=== PATIENT | female | born 2000 | race Caucasian/White ===

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

== ENCOUNTER 2022-04-25 15:21 | Outpatient (REF) | payer MEDICAID, SELFPAY ==
[2022-04-25 20:30] LABS: Abs Immature Grans 0.01 10^3/uL (0.0-0.06); Absolute Basophil Count 0.06 10^3/uL (0.0-0.2); Absolute Eosinophil Count 0.06 10^3/uL (0.0-0.7); Absolute Lymphocyte Count 2.34 10^3/uL (1.2-3.4); Absolute Monocyte Count 0.49 10^3/uL (0.1-0.8); Absolute Neutrophil Count 4.37 10^3/uL (1.2-6.7); Basophils % 0.8; Eosinophils % 0.8; HCT 37.6 % (36.0-46.0); HGB 12.6 g/dL (11.2-15.7); Immature Grans % 0.1; Lymphocytes % 31.9; MCH 30.9 pg (27.0-33.0); MCHC 33.5 % (32.0-36.0); MCV 92 fL (80-95); MPV 10.3 fL (8.0-11.0); Monocytes % 6.7; Neutrophils % 59.7; Platelet Count 286 10^3/uL (130-400); RBC 4.08 10^6/uL (3.93-5.22); RDW 11.9 % (11.7-14.6); RDW-SD 40.7 fL; WBC 7.33 10^3/uL (4.4-10.8)
== END 2022-04-25 15:22 | disposition home or self-care (01) ==
LOC: LBN 15:21
PROVIDERS: PCP Nurse Practitioner; Visit Provider Physician Assistant
DX: R59.1 Generalized enlarged lymph nodes (principal)
CPT/HCPCS: 85025

== ENCOUNTER 2022-07-13 15:24 | Emergency (ER) | payer MEDICAID, SELFPAY ==
[2022-07-13 15:30] VITALS: BP 115/64; PULSE 89; RESP 20; TEMP 36.8; O2SAT 96
--- NOTE | 2022-07-13 15:45 | DI.RAD_ITS ---
Exam(s) XR ELBOW LT COMPLETE EXAM: XR ELBOW LT COMPLETE CLINICAL HISTORY: dog bite lateral elbow TECHNIQUE: COMPARISON: No exams were available for comparison FINDINGS: Three views were obtained. There appears to be a small amount of gas in the soft tissues adjacent to the lateral epicondyle of the humerus. There is no underlying fracture. No evidence of joint effus ion . IMPRESSION: RADIATION DOSE DELIVERED: Total DLP
--- NOTE | 2022-07-13 15:52 | W.ED.GENAD ---
Discharge Plan Disposition Patient Disposition: Home Condition: Good Discharge Details Clinical Impression: Dog bite, Elbow laceration Primary Care Provider: Migdalia Santizo ED Provider: Kate Carrizales Home Meds and New Rx's Prescriptions: New amoxicillin-pot clavulanate 875-125 mg tablet 1 tab PO BID 7 Days Qty: 14 0RF Continued loratadine [Allergy Relief (loratadine)] 10 mg tablet 10 mg PO DAILY Qty: 90 3RF fluticasone propionate [Flonase Allergy Relief] 50 mcg/actuation spray,suspension 1 spray intranasal DAILY Qty: 16 3RF Rx Instructions: administer into each nostril bupropion HCl [Wellbutrin SR] 100 mg tablet sustained-release 12 hr 100 mg PO DAILY Qty: 90 5RF hydroxyzine HCl 25 mg tablet 25 mg PO QID PRN (Reason: itching) Qty: 60 1RF Nexplanon 68 mg implant 1 implant SBD ONCE Qty: 1 0RF ondansetron HCl 4 mg tablet 4 mg PO Q8H PRN (Reason: nausea and vomiting) Qty: 5 0RF Discharge Instructions Instructions: Animal Bite (ED), Laceration (ED) Additional Instructions: Please keep your wound clean, dry, covered. May wash with running water but do not soak or submerge. Please monitor wound for signs of infection including redness, warmth, drainage, increased pain, fever/chills. If you develop these or other new/worsening symptoms to seek care urgently once again. X-rays are reassuring here today, no evidence of fracture or retained tooth fragment. Please call your primary care to discuss refills of your anxiety medication before these run out. Please allow the Steri-Strips to come off on its own or do not pick or pull at this. Applying a large Band-Aid over this area will help this stay in place for a longer time. Referrals: Migdalia Santizo NP [Primary Care Provider] - Discharge Data Discharge Date/Time-TO BE ENTERED AT DEPARTURE: 07/13/22 16:34 Medical Decision Making Patient is a pleasant 22-year-old emjcu-bgrn-bntjadka female presented with chief complaint of left elbow laceration after being bit by dog. She reports this is is a large pimple in this her parents dog. States that it was fighting with another large people and she was attempting to break up the fight. Dog has bit her on other occasions as well, has healing wounds to the left hand. She denies any numbness or tingling. States that the pain is radiating proximally up the lateral aspect of the arm some. States that she cleansed the wound and applied Steri-Strips and bacitracin. Reports that she is up-to-date on tetanus. On exam, patient appears nontoxic. She has a 1.5 cm linear laceration over the lateral aspect of the left elbow. She does have some swelling, ecchymosis and tenderness extending 5 cm proximal to the laceration but no break in the skin elsewhere. She has full range of motion, neurovascularly intact distal to the wound as well as proximally. Consider possible bony involvement or fracture to this, will obtain an x-ray. We will begin on Augmentin. We will give Tylenol and ibuprofen to help with discomfort. FINDINGS: Bones/joints: No significant anterior or posterior fat pad elevation is appreciated. There is some subtle sclerosis which may represent averaging versus previous injury at the radial neck level. No fracture or dislocation is appreciated. Soft tissues: There is slight soft tissue swelling with subcutaneous emphysema anterior laterally predominant corresponding to the clinical history provided of dog bite. This indicates skin laceration. No radiopaque foreign body is appreciated. IMPRESSION: 1. Osseous alignment is maintained.No fracture or dislocation is appreciated. 2. There is some subcutaneous emphysema demonstrated corresponding to the clinical history provided. Reviewed the imaging and area of air is consistent with area of dog bite, no evidence to suggest infection at this time particularly given the recent the wound. More likely just air trapping in the wound. Discussed these findings with the patient. We will remove her Steri-Strips, cleanse the wound and reevaluate deep structures. Then plan to close with adhesive strips to allow for continued drainage of the wound. Wound was copiously irrigated. Explored to base in a bloodless field. No foreign body or debris noted. Wound edges gently reapproximated with Steri-Strips but gaps remaining to allow for from the wound. Drainage potential patient given first dose of Augmentin here. Received analgesics. We discussed wound care and care of the Steri-Strips in depth. Did apply large Band-Aid over this to help prevent this from catching on close or patient picking or pulling at it. Advise follow-up with primary care in 1 to 2 weeks for reevaluation of the wound. Tetanus status was not up-to-date in our system but she states that she received it a few weeks ago when at hospital in [place] for previous dog bite. All of her questions and concerns were addressed and she is in agreement with this plan. Sign Out No HPI General Date/Time Provider Initiated Documentation: 07/13/22 15:26. Limitations to Documentation: no limitations. Information obtained by: patient and RN notes reviewed. History of Present Illness 22 year old F presents to the emergency department with the chief complaint of dog bite left elbow, described as severe, with intensity rated at 10. Quality is described as stabbing, and is localized to the left and upper extremity. Patient proximal. Patient started experiencing this minute(s) and it has been constant. Immobilization improves symptom(s), Movement worsens symptoms . Patient notes no other symptoms.. Patient did receive the following treatments prior to arrival, none Related Data Home Medications Medication Instructions Recorded Confirmed etonogestrel 68 mg subdermal 1 implant subdermal ONCE #1 ea 07/09/21 07/13/22 implant (Nexplanon) ondansetron HCl 4 mg tablet 4 mg PO Q8H PRN nausea and 04/25/22 07/13/22 vomiting #5 tabs bupropion HCl 100 mg tablet,12 hr 100 mg PO DAILY #90 tabs 05/16/22 07/13/22 sustained-release (Wellbutrin SR) fluticasone propionate 50 1 spray intranasal DAILY #16 grams 05/16/22 07/13/22 mcg/actuation nasal spray,suspension (Flonase Allergy Relief) hydroxyzine HCl 25 mg tablet 25 mg PO QID PRN itching #60 tabs 05/16/22 07/13/22 loratadine 10 mg tablet (Allergy 10 mg PO DAILY #90 tabs 05/16/22 07/13/22 Relief (loratadine)) amoxicillin 875 mg-potassium 1 tab PO BID 7 days #14 tabs 07/13/22 clavulanate 125 mg tablet Previous Rx's Medication Instructions Recorded etonogestrel 68 mg subdermal 1 implant subdermal ONCE #1 ea 07/09/21 implant (Nexplanon) ondansetron HCl 4 mg tablet 4 mg PO Q8H PRN nausea and 04/25/22 vomiting #5 tabs bupropion HCl 100 mg tablet,12 hr 100 mg PO DAILY #90 tabs 05/16/22 sustained-release (Wellbutrin SR) fluticasone propionate 50 1 spray intranasal DAILY #16 grams 05/16/22 mcg/actuation nasal spray,suspension (Flonase Allergy Relief) hydroxyzine HCl 25 mg tablet 25 mg PO QID PRN itching #60 tabs 05/16/22 loratadine 10 mg tablet (Allergy 10 mg PO DAILY #90 tabs 05/16/22 Relief (loratadine)) amoxicillin 875 mg-potassium 1 tab PO BID 7 days #14 tabs 07/13/22 clavulanate 125 mg tablet Allergies Allergy/AdvReac Type Severity Reaction Status Date / Time No Known Allergies Allergy Unverified 07/13/22 15:32 General Stated Complaint: AnimalBite AMARILIS: 3 Review of Systems Constitutional Constitutional: Reports as per HPI, Denies chills and Denies fever(s) Musculoskeletal Musculoskeletal: Reports as per HPI Integumentary/Breasts Skin/Breast: Reports as per HPI Neurologic Neurologic: Reports as per HPI, Denies sensory deficit and Denies paresthesias PFSH All Active Problems (Updated 07/13/22 @ 16:28 by PEDRO Bright) Dog bite (Acute) Elbow laceration (Acute) Allergic rhinitis (Acute) Anxiety (Chronic) Depression (Chronic) Nexplanon in place (Acute) HSV (herpes simplex virus) anogenital infection (Acute) 2020- eval/tx with [facility]LL[facility]ACH[facility] [employer]NER Medical History Pertussis (05/25/12) Surgical History No significant past surgical history Family History Mother Substance abuse Mental disorder depression Alcohol use disorder Depression Father Substance abuse ADHD (attention deficit hyperactivity disorder) Alcohol use disorder Other Essential hypertension paternal Personal history of malignant neoplasm PGGM-blood Sister No problems noted. Sister No problems noted. Sister No problems noted. Brother No problems noted. Brother No problems noted. Social History Smoking/Tobacco Use Status: Current-Occasional Tobacco Type: cigarettes Quit status: considering quitting Second Hand Exposure: Yes Smoking risk assessment performed?: Yes Alcohol Intake: current Alcohol Intake frequency: a few times a month Alcohol type: beer, wine and hard liquor Drug use: Socially Substance use type: marijuana Caregiver/Support person: No Household members: none Communication Needs: None Pets and animals: No Sexually active: Yes Do you think of yourself as: bisexual Current gender identity: female What is your relationship status?: never How often do you talk on the phone with friends or family?: twice per week How often do you get together with friends or relatives?: once per week How often do you attend samaritan or orthodox services?: decline to answer Do you belong to any clubs or organized social groups?: no Panel score (0-1 are the most socially isolated patients): 1 What type of physical activity do you participate in: yoga Duration: 15-30 minutes/day Frequency: 1-2 times per week Mary/Church: No preference Seatbelt use: always Helmet use: Yes Helmet use: sometimes 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 Water heater temp set <120 deg: No Fire extinguisher in home: Yes Carbon monox detector in home: Yes Firearms in home: No Do you feel safe at home: Yes Additional Social history: father currently incarcerated Female Reproductive History Menstrual Age of Menarche: 14 Duration of menses: 3-5 days control method: implanted History History 0 Para Hx # Term Pregnancies Multiple births Hx # Pregnancies Ectopic pregnancies AB induced Hx Number of Living Children AB spontaneous Exam Const General: cooperative, healthy appearing, comfortable, no acute distress and well developed Nutritional Appearance: average body habitus and well nourished Orientation: alert and awake Resp Effort & Inspection: normal respiratory effort, able to speak in complete sentences and no respiratory distress Cardio Rate: regular rate Rhythm: regular rhythm Skin Trauma: laceration Neuro General: patient alert and patient awake Cognition: normal cognition Speech: speech normal Gait: normal gait Sensory Exam: no sensory deficits noted Extrem Elbow/forearm/wrist images: 1. Linear laceration into the subcutaneous tissue. No active bleeding. She does have some ecchymosis and swelling with tenderness on palpation proximal to this remaining on the lateral aspect of the elbow. No medial break in the skin or pain. She is full range of motion. 2+ distal pulses. Sensation is intact. No foreign body or debris noted on the wound. Psych Appearance: grossly normal and well kempt Mental Status: mental status grossly normal Speech and Movement: speech and movement normal Course Vital Signs Vital signs: Vital Signs Temperature 36.8 C 07/13/22 15:30 Pulse 89 07/13/22 15:30 Respiratory Rate 20 07/13/22 15:30 Blood Pressure 115/64 07/13/22 15:30 Pulse Oximetry 96 07/13/22 15:30 Temperature 36.8 C 07/13/22 15:30 Temperature Source Oral 07/13/22 15:30 Pulse 89 07/13/22 15:30 Respiratory Rate 20 07/13/22 15:30 Respiratory Effort Non-Labored 07/13/22 15:39 Blood Pressure 115/64 07/13/22 15:30 Blood Pressure Position Sitting 07/13/22 15:30 Pulse Oximetry 96 07/13/22 15:30 Pain Level 10 07/13/22 15:30 PAWSS Have you Been Recently Intoxicated or Drunk Within the Last 30 days?: No Have you Ever Experienced Previous Episodes of Alcohol Withdrawal?: No Have you ever Experienced Withdrawal Seizures?: No Have you ever Experienced Delirium Tremens(DT)s?: No Have you ever undergone Alcohol Rehabilitation Treatment (i.e, inpt ot outpatient treatment programs)?: No Have you ever Experienced Blackouts?: No Have you ever Combined Alcohol with other Downers within the last 90 days?: No Have you ever Combined Alcohol with any other Substance of Abuse during the last 90 days?: No Positive Blood Alcohol level on Presentation? [PCS.BAL]: No Evidence of Increased Autonomic Activity (i.e. HR>120, tremor, sweating, agitation, nausea)?: No Result: 0
[2022-07-13] MEDS: Acetaminophen 325 MG TAB 650 MG PO (15:57)
[2022-07-13] MEDS: Ibuprofen 600 MG TAB PO (15:57)
[2022-07-13] MEDS: Amoxicillin 875/Clav. 125 TAB PO (15:57)
--- NOTE | 2022-07-13 16:10 | DI.VRAD_ITS ---
PROCEDURE INFORMATION: Exam: XR Left Elbow Exam date and time: 07/13/2022 4:00 PM Age: 22 years old Clinical indication: Other: Dog bite lateral elbow TECHNIQUE: Imaging protocol: Radiologic exam of the Left elbow. 3image(s) are provided. Views: 3 or more views. COMPARISON: No relevant prior studies available. FINDINGS: Bones/joints: No significant anterior or posterior fat pad elevation is appreciated. There is some subtle sclerosis which may represent averaging versus previous injury at the radial neck level. No fracture or dislocation is appreciated. Soft tissues: There is slight soft tissue swelling with subcutaneous emphysema anterior laterally predominant corresponding to the clinical history provided of dog bite. This indicates skin laceration. No radiopaque foreign body is appreciated. IMPRESSION: 1. Osseous alignment is maintained.No fracture or dislocation is appreciated. 2. There is some subcutaneous emphysema demonstrated corresponding to the clinical history provided. Dictated and Authenticated by: Oswaldo Reyes MD. Ordering:HARRIETT Love MD
--- NOTE | 2022-07-13 16:12 | NUR.NOTE ---
Nursing Note: Patient stated that the dog that bit her was her parents dog. This happened in [place], [place]. We are not mandated to report in [place].
== END 2022-07-13 16:34 | disposition home or self-care (01) ==
PROVIDERS: Emergency Provider Physician Assistant; PCP Nurse Practitioner Family
DX: S51.052A Open bite, left elbow, initial encounter (principal); W54.0XXA Bitten by dog, initial encounter
CPT/HCPCS: 99283; 73080

== ENCOUNTER 2022-12-10 21:02 | Outpatient (REF) | payer MEDICAID, SELFPAY | END 2022-12-10 21:03 | disposition home or self-care (01) | LOC: NCHCN 21:02 | PROVIDERS: PCP Nurse Practitioner Family; Visit Provider Nurse Practitioner Family | DX: J02.9 Acute pharyngitis, unspecified (principal) | CPT/HCPCS: 87070 ==

== ENCOUNTER 2022-12-31 01:24 | Outpatient (CLI) | payer MEDICAID, SELFPAY ==
--- NOTE | 2022-12-31 08:00 | DI.US_ITS ---
Exam(s) US SOFT TISSUE HEAD OR NECK EXAM: US SOFT TISSUE HEAD OR NECK CLINICAL HISTORY: ? bilateral lymph swelling or mass,NECK PAIN,M54.2. TECHNIQUE: Ultrasound was performed using standard protocol. COMPARISON: No exams were available for comparison FINDINGS: Sonographic assessment utilizing grayscale and color Doppler imaging was performed and targeted to th e area of clinical concern. Multiple lymph nodes are seen around and 1 or 2 within the right parotid gland. The largest lymph no de on the right measures 1.4 cm. The left side was also evaluated. The largest lymph node measures 1 cm. The lymph nodes have a sonographically benign appearance. They are homogeneously hypoechoic w ith an echogenic notch. IMPRESSION: Sonographically benign-appearing lymph nodes in the neck corresponding to the palpable abnormality. DATA REPOSITORY:
== END 2022-12-31 01:44 ==
LOC: DI 01:25
PROVIDERS: PCP Nurse Practitioner Family; Visit Provider Nurse Practitioner Family
DX: R59.9 Enlarged lymph nodes, unspecified (principal)
CPT/HCPCS: 76536

== ENCOUNTER 2023-05-29 17:16 | Emergency (ER) | payer SELFPAY ==
[2023-05-29 17:18] VITALS: BP 153/80; PULSE 94; RESP 16; TEMP 36.8; O2SAT 100
[2023-05-29 17:41] LABS: Bilirubin Negative (Negative); Blood Large (Negative); Clarity Cloudy (Clear); Glucose Negative (Negative); Ketones 15 mg/dL (Negative); Leukocyte Esterase Trace (Negative); Nitrite Negative (Negative); Specific Gravity 1.025 (1.005-1.025); Urobilinogen 0.2 mg/dL (Up to 0.2)
--- NOTE | 2023-05-29 17:46 | W.ED.GENAD ---
Discharge Plan Disposition Patient Disposition: Home Condition: Improving Discharge Details Clinical Impression: UTI (urinary tract infection) Primary Care Provider: Migdalia Santizo ED Provider: Steven Boyd Home Meds and New Rx's Prescriptions: New cefpodoxime 200 mg tablet 200 mg PO BID 7 Days Qty: 14 0RF Rx Instructions: must administer with a meal/food No Action loratadine [Allergy Relief (loratadine)] 10 mg tablet 10 mg PO DAILY Qty: 90 3RF Nexplanon 68 mg implant 1 implant SBD ONCE Qty: 1 0RF hydroxyzine HCl 25 mg tablet 25 mg PO QID PRN (Reason: itching) Qty: 60 1RF Discharge Instructions Instructions: Urinary Tract Infection in Women (ED) Additional Instructions: Please take antibiotics as prescribed. Continue with ibuprofen and/or acetaminophen for pain at home. Please return to the emergency department for any worsening symptoms Medical Decision Making 23-year-old female presents with flank discomfort in the setting of UTI. Afebrile nontoxic denies history of kidney stones. Endorses incomplete voiding sensation and urinary frequency. Consider UTI versus early pyelonephritis lower suspicion for kidney stone given history and physical, urine test negative for , lower suspicion for ovarian cyst or ovarian torsion given degree and characteristics of symptoms. Will send urinalysis, trial of analgesia anti-inflammatory, pending UA will likely start empiric antibiotics. Given stable vital signs and clinical appearance patient will be a good candidate for outpatient oral antibiotics with home care instructions and return precautions 20: 05 patient feeling much better after meds and fluids; hemodynamically stable. Will transition to cefpodoxime as outpatient. Home care instructions and return precautions given HPI General Date/Time Provider Initiated Documentation: 05/29/23 17:19. HPI Narrative: 23-year-old female presents with back discomfort in the setting of UTI denies history of kidney stones. Related Data Home Medications Medication Instructions Recorded Confirmed etonogestrel 68 mg subdermal 1 implant subdermal ONCE #1 ea 07/09/21 12/10/22 implant (Nexplanon) loratadine 10 mg tablet (Allergy 10 mg PO DAILY #90 tabs 05/16/22 12/10/22 Relief (loratadine)) hydroxyzine HCl 25 mg tablet 25 mg PO QID PRN itching #60 tabs 01/10/23 cefpodoxime 200 mg tablet 200 mg PO BID 7 days #14 tabs 05/29/23 Previous Rx's Medication Instructions Recorded etonogestrel 68 mg subdermal 1 implant subdermal ONCE #1 ea 07/09/21 implant (Nexplanon) loratadine 10 mg tablet (Allergy 10 mg PO DAILY #90 tabs 05/16/22 Relief (loratadine)) hydroxyzine HCl 25 mg tablet 25 mg PO QID PRN itching #60 tabs 01/10/23 cefpodoxime 200 mg tablet 200 mg PO BID 7 days #14 tabs 05/29/23 Allergies Allergy/AdvReac Type Severity Reaction Status Date / Time No Known Allergies Allergy Unverified 12/10/22 13:15 General Stated Complaint: Urinary AMARILIS: 3 Review of Systems Narrative: Review of Systems Constitutional: negative Eyes: negative ENT: negative Cardiovascular: negative Respiratory: negative Gastrointestinal: negative : Back pain Musculoskeletal: negative Skin: negative Neurologic: negative Psych: negative PFSH All Active Problems (Updated 05/29/23 @ 20:08 by Steven Boyd MD) UTI (urinary tract infection) (Acute) Tonsil stone (Acute) Neck pain (Acute) Allergic rhinitis (Acute) Anxiety (Chronic) Depression (Chronic) Nexplanon in place (Acute) HSV (herpes simplex virus) anogenital infection (Acute) 2020- 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 Sister No problems noted. Sister No problems noted. Brother No problems noted. Brother No problems noted. Social History Smoking/Tobacco Use Status: Current-Occasional Tobacco Type: cigarettes Quit status: considering quitting Second Hand Exposure: Yes Smoking risk assessment performed?: Yes Alcohol Intake: current Alcohol Intake frequency: a few times a month Alcohol type: beer, wine and hard liquor Drug use: Socially Substance use type: marijuana Caregiver/Support person: No Household members: none Communication Needs: None Pets and animals: No Sexually active: Yes Do you think of yourself as: bisexual Current gender identity: female What is your relationship status?: never How often do you talk on the phone with friends or family?: twice per week How often do you get together with friends or relatives?: once per week How often do you attend jain or episcopalian services?: decline to answer Do you belong to any clubs or organized social groups?: no Panel score (0-1 are the most socially isolated patients): 1 What type of physical activity do you participate in: yoga Duration: 15-30 minutes/day Frequency: 1-2 times per week Mary/Oriental Orthodox: No preference Seatbelt use: always Helmet use: Yes Helmet use: sometimes 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 Water heater temp set <120 deg: No Fire extinguisher in home: Yes Carbon monox detector in home: Yes Firearms in home: No Do you feel safe at home: Yes Additional Social history: father currently incarcerated Female Reproductive History Menstrual Age of Menarche: 14 Duration of menses: 3-5 days control method: implanted History History 0 Para Hx # Term Pregnancies Multiple births Hx # Pregnancies Ectopic pregnancies AB induced Hx Number of Living Children AB spontaneous Exam Narrative Exam Narrative: Physical Examination General: alert, awake, cooperative HEENT: normocephalic, atraumatic; PERRL, EOM intact, conjunctiva normal; no nasal discharge; moist mucous membranes, oral and pharyngeal mucosa normal, tolerating secretions Neck: supple, trachea midline; full ROM Chest: normal to inspection Respiratory: normal respiratory effort, speaking in full sentences, clear to auscultation, no wheezing, rales or rhonchi Cardiac: regular rate, regular rhythm, S1S2 intact, no murmurs rubs or gallops GI: abdomen soft, non-tender, non-distended; no palpable mass or hepatosplenomegaly Skin: no lesions, rashes or trauma appreciated Neuro: AAOx3, normal speech, moving all extremities Psych: Appropriate mood and affect Course Vital Signs Vital signs: Vital Signs Temperature 36.8 C 05/29/23 17:18 Pulse 94 H 05/29/23 17:18 Respiratory Rate 16 05/29/23 17:18 Blood Pressure 153/80 H 05/29/23 17:18 Pulse Oximetry 100 05/29/23 17:18 Temperature 36.8 C 05/29/23 17:18 Temperature Source Skin 05/29/23 17:18 Pulse 94 H 05/29/23 17:18 Respiratory Rate 16 05/29/23 17:18 Blood Pressure 153/80 H 05/29/23 17:18 Blood Pressure Position Sitting 05/29/23 17:18 Pulse Oximetry 100 05/29/23 17:18 Oxygen Delivery Method Room Air 05/29/23 17:18 Oxygen Flow Rate 0 05/29/23 17:18 Pain Level 10 05/29/23 17:18 Lab/Test Results Lab/Test Results: Laboratory Tests Range/Units 05/29/23 17:24 Urine Color (Yellow) Yellow Urine Clarity (Clear) Cloudy Urine pH (5-8) 6.0 Ur Specific [place] (1.005-1.025) 1.025 Urine Protein (Negative) mg/dL 100 H Urine Ketones (Negative) mg/dL 15 H Urine Blood (Negative) Large H Urine Nitrite (Negative) Negative Urine Bilirubin (Negative) Negative Urine Urobilinogen (Up to 0.2) mg/dL 0.2 Ur Leukocyte Esterase (Negative) Trace H Urine Glucose (Negative) mg/dL Negative POC- Test(urine) Negative
[2023-05-29] MEDS: Ondansetron 4 MG/2 ML VIAL IVP (17:48)
[2023-05-29] MEDS: Normal Saline 1,000 ML 1000 ML IV (17:48)
[2023-05-29] MEDS: Ketorolac 15 MG/ML VIAL IVP (17:48)
[2023-05-29 17:55] LABS: Bacteria Few HPF (Negative); C & S Indicated? Yes; Casts Negative LPF (Negative); Epithelial Cells Rare HPF (Negative); Mucus Trace (Negative); RBC >50 HPF (0-2); WBC >50 HPF (0-5)
[2023-05-29 17:56] LABS: Crystals Negative HPF (Negative)
[2023-05-29 18:06] LABS: Abs Immature Grans 0.04 10^3/uL (0.0-0.06); Absolute Basophil Count 0.04 10^3/uL (0.0-0.2); Absolute Eosinophil Count 0.11 10^3/uL (0.0-0.7); Absolute Monocyte Count 0.81 10^3/uL (0.1-0.8); Absolute Neutrophil Count 10.65 10^3/uL (1.2-6.7); Basophils % 0.3; Eosinophils % 0.8; HCT 34.8 % (36.0-46.0); HGB 11.8 g/dL (11.2-15.7); Immature Grans % 0.3; Lymphocytes % 13.3; MCH 30.3 pg (27.0-33.0); MCHC 33.9 % (32.0-36.0); MCV 89 fL (80-95); MPV 10.3 fL (8.0-11.0); Neutrophils % 79.3; Platelet Count 228 10^3/uL (130-400); RDW 11.9 % (11.7-14.6); RDW-SD 37.8 fL; WBC 13.43 10^3/uL (4.4-10.8)
[2023-05-29 18:07] LABS: Absolute Lymphocyte Count 1.79 10^3/uL (1.2-3.4)
[2023-05-29] MEDS: cefTRIAXone 2 GM/50 ML BAG IVPB (18:18)
[2023-05-29 18:39] LABS: ALT 21 U/L (14-59); AST 16 U/L (15-37); Albumin 4.2 g/dL (3.4-5.0); Alkaline Phosphatase 60 U/L (46-116); Anion Gap 9.4 mmol/L (3-11); BUN 12 mg/dL (7-18); Bilirubin, Total 0.2 mg/dL (0.2-1.0); CO2 24.6 mmol/L (21.0-32.0); CREATININE 0.6 mg/dL (0.55-1.02); Calcium 9.4 mg/dL (8.5-10.1); Chloride 106 mmol/L (98-107); Estimated GFR 130.88 (mL/min/1.73m2); Glucose 86 mg/dL (74-106); Potassium 3.2 mmol/L (3.5-5.1); Sodium 140 mmol/L (136-145); Total Protein 7.6 g/dL (6.4-8.2)
[2023-05-29 20:19] VITALS: BP 122/54; PULSE 64; RESP 20; O2SAT 99
== END 2023-05-29 20:21 | disposition home or self-care (01) ==
PROVIDERS: Emergency Provider Emergency Medicine; PCP Nurse Practitioner Family
DX: N39.0 Urinary tract infection, site not specified (principal); F17.210 Nicotine dependence, cigarettes, uncomplicated
CPT/HCPCS: 36415; 80053; 81025; 87077; 96365; 96375; 99283; 81003; 81015; 85025; 87086; 87186; J1885; J2405

== ENCOUNTER 2025-04-24 17:57 | Emergency (ER) | payer MEDICAID, SELFPAY ==
[2025-04-24 18:15] VITALS: BP 114/77; PULSE 92; RESP 18; TEMP 36.6; O2SAT 97
--- NOTE | 2025-04-24 18:30 | DI.RAD_ITS ---
Exam(s) XR CHEST 2V PA LATERAL EXAM: XR CHEST 2V PA LATERAL CLINICAL HISTORY: cough, sputum TECHNIQUE: 2D digital imaging was performed of the chest. Two images were obtained. PA and lateral views were obtained. COMPARISON: No exams were available for comparison FINDINGS: MEDIASTINUM: Normal. HEART: Normal. PULMONARY VASCULATURE: Normal. LUNGS: No focal consolidating infiltrates are present. PLEURAL SPACE: No pleural effusion or pneumothorax. BONE:Within normal limits for the patient's age. OTHER FINDINGS:Normal. IMPRESSION: 1. No acute pulmonary findings. 2. If there is continued clinical concern, a repeat chest x-ray may be obtained in 7-10 days. 3. The preliminary [facility] report was reviewed. DATA REPOSITORY: RADIATION DOSE DELIVERED:
--- NOTE | 2025-04-24 18:40 | ED.GENADUL_ITS ---
Discharge Plan Disposition Patient Disposition: Home Discharge Details Clinical Impression: Cough Primary Care Provider: Migdalia Santizo ED Provider: Reynaldo Hyman Home Meds and New Rx's Prescriptions: New prednisone 20 mg tablet 40 mg PO DAILY Qty: 6 0RF Atrovent HFA 17 mcg/actuation HFA aerosol inhaler 2 puff inhalation Q8H Qty: 12.9 0RF No Action loratadine [Allergy Relief (loratadine)] 10 mg tablet 10 mg PO DAILY Qty: 90 3RF hydroxyzine HCl 25 mg tablet 25 mg PO QID PRN (Reason: itching) Qty: 60 1RF Discharge Instructions Instructions: Cough in adults Additional Instructions: Please follow-up with your primary care provider regarding your visit to the emergency department today. Be sure to discuss results of all test performed here today to include radiology, and laboratory testing as well as results for any pending cultures. Should your symptoms worsen, or if you develop new concerning symptoms, please return immediately emergency department for further evaluation. HPI General Date/Time Provider Initiated Documentation: 04/24/25 18:25 . HPI Narrative: MDM/Narrative: Persistent cough with sputum production, chest congestion, and lung fullness. Chronic smoking history. Recent runny nose, sore throat, and headaches. Differential Diagnosis: - Bacterial infection: Persistent cough and chest congestion. Chest x-ray ordered. Antibiotics if indicated. - Chronic bronchitis: Chronic smoking history. Prednisone and Atrovent prescribed. ED Course: Chest x-ray ordered. Prednisone administered. Atrovent provided. Final Assessment: Chest x-ray to rule out bacterial infection. Prednisone for inflammation. Atrovent for cough. Clinical Impression: - Persistent cough - Chest congestion - Chronic bronchitis Disposition: Discharge: Home. Return if symptoms worsen or new symptoms develop. Follow-Up: Chest x-ray results pending. Antibiotics if indicated. Patient Education: Prednisone and Atrovent usage explained. This document was created with assistance from [employer]. The patient consented to its use. HPI: The patient, a 25-year-old female with a chronic history of tobacco use, presents with a cough and thoracic congestion. She reports a sensation of fullness in the lungs and a severe cough that began following an illness contracted in [place]. Initially, she experienced rhinorrhea and pharyngitis. She is currently congested with thoracic pressure that exacerbates with ambulation. The cough was initially productive but has since decreased in productivity, although she continues to expectorate. She denies pyrexia but reports cephalalgia and migraines. There is no associated nausea or emesis. ROS: Negative besides as mentioned above Exam: Vital signs: Reviewed. General Appearance: Alert and oriented. No acute distress. HEENT: NCAT, EOMI, not icteric. External ears normal. No rhinorrhea. Moist mucous membranes. Neck: Supple, full range of motion, no observable masses, No meningeal sign. Respiratory: Wheezing noted on right lower lung. Cardiovascular: RRR, no edema. Gastrointestinal: Soft, nondistended, No rebound tenderness. Back: No midline tenderness to palpation or palpable step-offs of the C/T/L spine. Skin: Warm and dry, no rash. Neurological: Normal Gait, Grossly intact. Psychiatric: Appropriate for situation. Radiology: CXR 2 view: NAD as read by me. Related Data Home Medications ?Medication ?Instructions ?Recorded ?Confirmed loratadine 10 mg tablet (Allergy 10 mg PO DAILY #90 ta bs 05/16/22 04/24/25 Relief (loratadine)) hydroxyzine HCl 25 mg tablet 25 mg PO QID PRN itching #60 tabs 01/10/23 04/24/25 ipratropium bromide 17 2 puff inhalation Q8H #12.9 grams 04/24/25 mcg/actuation HFA aerosol inhaler (Atrovent HFA) prednisone 20 mg tablet 40 mg (2 x 20 mg) PO DAILY # 6 tabs 04/24/25 Previous Rx's ?Medication ?Instructions ?Recorded loratadine 10 mg tablet (Allergy 10 mg PO DAILY #90 ta bs 05/16/22 Relief (loratadine)) hydroxyzine HCl 25 mg tablet 25 mg PO QID PRN itching #60 tabs 01/10/23 ipratropium bromide 17 2 puff inhalation Q8H #12.9 grams 04/24/25 mcg/actuation HFA aerosol inhaler (Atrovent HFA) prednisone 20 mg tablet 40 mg (2 x 20 mg) PO DAILY # 6 tabs 04/24/25 Allergies Allergy/AdvReac Type Severity Reaction Status Date / Time No Known Allergies Allergy Unverified 04/24/25 18:25 General Stated Complaint: RespSymp AMARILIS: 4 Course Vital Signs Vital signs: Vital Signs Temperature 36.6 C 04/24/25 18:15 Pulse 92 H 04/24/25 18:15 Respiratory Rate 18 04/24/25 18:15 Blood Pressure 114/77 04/24/25 18:15 Pulse Oximetry 97 04/24/25 18:15 Temperature 36.6 C 04/24/25 18:15 Temperature Source Oral 04/24/25 18:15 Pulse 92 H 04/24/25 18:15 Respiratory Rate 18 04/24/25 18:15 Blood Pressure 114/77 04/24/25 18:15 Pulse Oximetry 97 04/24/25 18:15 Oxygen Delivery Method Room Air 04/24/25 18:15 Oxygen Flow Rate 0 04/24/25 18:15 PFSH All Active Problems (Updated 04/24/25 @ 19:42 by Reynaldo Hyman MD) Cough (Acute) Tonsil stone (Acute) Neck pain (Acute) Allergic rhinitis (Acute) Anxiety (Chronic) Depression (Chronic) HSV (herpes simplex virus) anogenital infection (Acute) 2020- eval/tx with [facility] Medical History Pertussis (05/25/12) Surgical History No significant past surgical history Family History Mother Substance abuse Mental disorder depression Alcohol use disorder Depression Father Substance abuse ADHD (attention deficit hyperactivity disorder) Alcohol use disorder Other Essential hypertension paternal Personal history of malignant neoplasm PGGM-blood Sister No problems noted. Sister No problems noted. Sister No problems noted. Brother No problems noted. Brother No problems noted. Social History Smoking/Tobacco Use Status: Current-Occasional Tobacco Type: cigarettes Quit status: considering quitting Second Hand Exposure: Yes Smoking risk assessment performed?: Yes Alcohol Intake: current Alcohol Intake frequency: a few times a month Alcohol type: beer, wine and hard liquor Drug use: Daily Substance use type: marijuana, crack/cocaine and heroin Details: patient state she smoke weed today Caregiver/Support person: No Household members: none Communication Needs: None Pets and animals: No Sexually active: Yes Do you think of yourself as: bisexual Current gender identity: female What is your relationship status?: never How often do you talk on the phone with friends or family?: twice per week How often do you get together with friends or relatives?: once per week How often do you attend mandaeism or mormonism services?: decline to answer Do you belong to any clubs or organized social groups?: no Panel score (0-1 are the most socially isolated patients): 1 What type of physical activity do you participate in: yoga Duration: 15-30 minutes/day Frequency: 1-2 times per week Mary/Restorationism: No preference Seatbelt use: always Helmet use: Yes Helmet use: sometimes 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 Water heater temp set <120 deg: No Fire extinguisher in home: Yes Carbon monox detector in home: Yes Firearms in home: No Do you feel safe at home: Yes Additional Social history: father currently incarcerated Female Reproductive History Menstrual Age of Menarche: 14 Duration of menses: 3-5 days control method: implanted History History 0 Para Hx # Term Pregnancies Multiple births Hx # Pregnancies Ectopic pregnancies AB induced Hx Number of Living Children AB spontaneous PAWSS Have you Been Recently Intoxicated or Drunk Within the Last 30 days?: Yes Have you Ever Experienced Previous Episodes of Alcohol Withdrawal?: No Have you ever Experienced Withdrawal Seizures?: No Have you ever Experienced Delirium Tremens(DT)s?: No Have you ever undergone Alcohol Rehabilitation Treatment (i.e, inpt ot outpatient treatment programs)?: No Have you ever Experienced Blackouts?: No Have you ever Combined Alcohol with other Downers within the last 90 days?: No Have you ever Combined Alcohol with any other Substance of Abuse during the last 90 days?: No Positive Blood Alcohol level on Presentation? [PCS.BAL]: No Evidence of Increased Autonomic Activity (i.e. HR>120, tremor, sweating, agitation, nausea)?: No Result: 1
[2025-04-24] MEDS: predniSONE 20 MG TAB 40 MG PO (19:12)
--- NOTE | 2025-04-24 20:16 | DI.VRAD_ITS ---
PROCEDURE INFORMATION: Exam: XR Chest Exam date and time: 04/24/2025 7:33 PM Age: 25 years old Clinical indication: Cough, sputum TECHNIQUE: Imaging protocol: Radiologic exam of the chest. Views: 2 views. COMPARISON: No relevant prior studies available. FINDINGS: Lungs: Unremarkable. No consolidation. Pleural spaces: Unremarkable. No pleural effusion. No pneumothorax. Heart/Mediastinum: Unremarkable. No cardiomegaly. Bones/joints: Unremarkable. IMPRESSION: No evidence for acute abnormality in the chest. Dictated and Authenticated by: Elida Bonilla MD. Orderin Boogie Jacobs MD
== END 2025-04-24 19:56 | disposition home or self-care (01) ==
PROVIDERS: Emergency Provider General Practice; PCP Nurse Practitioner Family
DX: R05.9 Cough, unspecified (principal); Z72.0 Tobacco use
CPT/HCPCS: 99283; 71046; J7512

== ENCOUNTER 2025-06-24 13:57 | Emergency (ER) | payer MEDICAID, SELFPAY ==
[2025-06-24 14:09] VITALS: BP 111/70; PULSE 83; RESP 20; TEMP 36.7; O2SAT 98
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
== END 2025-06-24 15:19 | disposition home or self-care (01) ==
LOC: ER 15:17
PROVIDERS: Emergency Provider General Practice; PCP Nurse Practitioner Family
DX: O99.891 Other specified diseases and conditions complicating pregnancy (principal); Y09 Assault by unspecified means
CPT/HCPCS: 99283; 99284; 76815

== ENCOUNTER 2025-07-13 17:54 | Emergency (ER) | payer MEDICAID, SELFPAY ==
[2025-07-13 18:02] VITALS: BP 118/76; PULSE 88; RESP 18; TEMP 37.3; O2SAT 99
== END 2025-07-13 20:30 | disposition left against medical advice (07) ==
LOC: ER 17:59
PROVIDERS: PCP Nurse Practitioner Family
DX: Z53.21 Procedure and treatment not carried out due to patient leaving prior to being seen by health care provider (principal)